=== PATIENT | female | born 1995 ===

== ENCOUNTER 2017-11-09 09:50 | Emergency (ER) | payer MEDICAID ==
[2017-07-15 18:00] VITALS: BMI 26.6
[2017-11-09] MEDS ORDERED: Lactated Ringer's 1,000 ML IV ONE (10:01)
[2017-11-09 10:15] LABS: BASO # 0.1 K/uL (0.0-0.2); BASO % 0.6 % (0.0-2.0); EOS # 0.1 K/uL (0.0-0.7); EOS % 1.4 % (0.0-4.0); HEMOGLOBIN 10.9 g/dL (11.0-16.0); LYMPH # 1.9 K/uL (1.0-4.3); LYMPH % 17.5 % (20.0-40.0); MEAN CELL VOLUME 74.9 fL (81.0-99.0); MEAN CORPUSCULAR HEMOGLOBIN 24.8 pg (27.0-31.0); MEAN CORPUSCULAR HGB CONC 33.1 g/dL (33.0-37.0); MEAN PLATELET VOLUME 8.7 fL (7.2-11.7); MONO % 9.7 % (0.0-10.0); NEUT # 7.6 K/uL (1.8-7.0); NEUT % 70.8 % (50.0-75.0); RBC 4.38 Mil/uL (3.80-5.20); RED CELL DISTRIBUTION WIDTH 17.7 % (11.5-14.5); WHITE BLOOD COUNT 10.7 K/uL (4.8-10.8)
[2017-11-09 10:18] LABS: SQUAMOUS EPITHIAL 2 /hpf (0-5); URINE BILIRUBIN NEGATIVE (NEGATIVE); URINE BLOOD NEGATIVE (NEGATIVE); URINE CLARITY Clear (Clear); URINE COLOR Straw (YELLOW); URINE GLUCOSE (UA) NORMAL (Normal); URINE LEUKOCYTE ESTERASE NEG Leu/uL (Negative); URINE NITRATE NEGATIVE (NEGATIVE); URINE PROTEIN NEGATIVE (NEGATIVE); URINE UROBILINOGEN NORMAL mg/dL (0.2-1.0)
[2017-11-09 10:30] LABS: ALBUMIN 3.2 g/dL (3.5-5.0); ALT/SGPT 26 U/L (9-52); AST/SGOT 25 U/L (14-36); BLOOD UREA NITROGEN 8 mg/dL (7-17); CALCIUM 8.5 mg/dl (8.6-10.4); GFR AFRICAN-AMERICAN > 60; GFR NON-AFRICAN AMERICAN > 60
[2017-11-09 10:38] LABS: PROTHROMBIN TIME 11.4 SECONDS (9.7-12.2)
[2017-11-09 15:43] VITALS: BP 111/66; PULSE 89
== END 2017-11-09 11:41 | disposition home or self-care (01) ==
LOC: C.EROB 09:50
DX: R10.9 Unspecified abdominal pain (principal); O36.8120 Decreased fetal movements, second trimester, not applicable or unspecified; Z3A.27 27 weeks gestation of pregnancy
CPT/HCPCS: 80053; 81001; 85025; 85610; 85730; 99283; J7120

== ENCOUNTER 2017-12-13 14:46 | Observation (INO) | payer MEDICAID ==
[2017-12-13 14:46] VITALS: BMI 26.6
--- NOTE | 2017-12-13 15:25 | C.PDOC ---
History Of Present Illness 22 year old female, who is currently around 32 weeks (A2), presents to the ED after having a syncopal episode earlier today. Patient states she was standing in line at the post office when she began feeling dizzy and "hot" prior to the syncopal episode. She now presents to the ED for evaluation of lower back pain and suprapubic pressure. Patient reports having a similar episode when she was 4 weeks , but she did not seek medical evaluation at the time. Patient states she has been experiencing lower back pain throughout her , but her symptoms have worsened after the fall. Patient denies chest pain, shortness of breath, urinary/bowl incontinence, tongue bite, focal signs of weakness, or any seizure-like activity prior to syncopal episode. Patient is undergoing care by Dr. Mari Carballo at [place]. Time Seen by Provider: 12/13/17 15:05 Chief Complaint (Nursing): Syncope History Per: Patient History/Exam Limitations: no limitations Onset/Duration Of Symptoms: Hrs Current Symptoms Are (Timing): Better Number Of Syncopal Episodes: 1 Activity At Onset Of Symptoms: Standing Associated Symptoms Preceding Syncopal Episode: Other (dizziness and feeling "hot") Seizure Or Post-ictal Symptoms: denies: Generalized Seizure Activity, Incontinent Of Urine, Incontinent Of Stool, Bit Tongue Fall Associated With With Symptoms: Yes Additional History Per: Patient Past Medical History Reviewed: Historical Data, Nursing Documentation, Vital Signs Vital Signs: Last Vital Signs Temp 98.6 F 12/13/17 18:25 Pulse 75 12/13/17 18:25 Resp 20 12/13/17 18:25 BP 112/69 12/13/17 18:25 Pulse Ox 97 12/13/17 19:05 - Medical History PMH: No Chronic Diseases Surgical History: No Surg Hx Family History: States: Unknown Family Hx - Social History Hx Alcohol Use: No Hx Substance Use: No - Immunization History Hx Tetanus Toxoid Vaccination: No Hx Influenza Vaccination: No Review Of Systems Cardiovascular: Negative for: Chest Pain Respiratory: Negative for: Shortness of Breath Gastrointestinal: Positive for: Nausea, Abdominal Pain Genitourinary: Negative for: Incontinence Musculoskeletal: Positive for: Back Pain (lower ) Neurological: Positive for: Dizziness. Negative for: Weakness (focal ) Physical Exam - Physical Exam Appears: Non-toxic, No Acute Distress Skin: Normal Color, Warm, Dry, No Other (focal injuries from syncopal episode ) Head: Atraumatic, Normacephalic Eye(s): bilateral: Normal Inspection Oral Mucosa: Moist Neck: Supple Chest: Symmetrical, No Deformity, No Tenderness Cardiovascular: Rhythm Regular, No Murmur Respiratory: Normal Breath Sounds, No Rales, No Rhonchi, No Wheezing Gastrointestinal/Abdominal: Soft, Tenderness (mild, suprapubic ), No Guarding, No Rebound, Other (gravid uterus ) Back: No Vertebral Tenderness, Paraspinal Tenderness (lumbar ), No Straight Leg Raising Extremity: Normal ROM, No Tenderness, No Calf Tenderness, Capillary Refill ( less than 2 seconds ), No Deformity, No Swelling Neurological/Psych: Oriented x3, Normal Speech, Normal Cognition Gait: Steady ED Course And Treatment - Laboratory Results Result Diagrams: 12/13/17 16:48 12/13/17 16:48 ECG: Interpreted By Me, Viewed By Me ECG Rhythm: Sinus Rhythm Interpretation Of ECG: Normal Sinus Rhythm at 90bpm. Normal Intervals. Normal axis. Nonspecific T wave changes. Rate From EC O2 Sat by Pulse Oximetry: 97 (on RA ) Pulse Ox Interpretation: Normal Medical Decision Making Medical Decision Making: Assessment: syncope Progress: Patient initially presented to the ED. Due to patient being more than 20 weeks , will elect for patient to be evaluated in L&D first. Patient was evaluated by Dr. Sonia Garcia (KN[employer]ON[employer] teacher) and was medically cleared and sent to the ED for evaluation of syncope. In ED, patient is complaining of lower back pain, suprapubic pressure, and nausea. Bloodwork and UA ordered and reviewed. Pepcid IVP, Zofran IVP, and IV Fluids administered. Disposition - Disposition Disposition Time: 19:00 Condition: STABLE Forms: [employer] (Khmer) - Clinical Impression Clinical Impression: Dizziness, Vasovagal syncope - Scribe Statement The provider has reviewed the documentation as recorded by the Scribe (Loli Riley) Provider Attestation: All medical record entries made by the Scribe were at my direction and personally dictated by me. I have reviewed the chart and agree that the record accurately reflects my personal performance of the history, physical exam, medical decision making, and the department course for this patient. I have also personally directed, reviewed, and agree with the discharge instructions and disposition. Physician Patient Turnover Patient Signed Over To: Román Benitez Handoff Comments: pending labs, reevaluation and disposition
[2017-12-13 16:52] LABS: PROTHROMBIN TIME 11.4 SECONDS (9.7-12.2)
[2017-12-13 16:58] LABS: BASO # 0.1 K/uL (0.0-0.2); BASO % 0.7 % (0.0-2.0); EOS # 0.1 K/uL (0.0-0.7); EOS % 0.7 % (0.0-4.0); HEMOGLOBIN 11.4 g/dL (11.0-16.0); LYMPH # 1.6 K/uL (1.0-4.3); LYMPH % 12.5 % (20.0-40.0); MEAN CELL VOLUME 74.3 fL (81.0-99.0); MEAN CORPUSCULAR HEMOGLOBIN 24.4 pg (27.0-31.0); MEAN CORPUSCULAR HGB CONC 32.9 g/dL (33.0-37.0); MEAN PLATELET VOLUME 8.9 fL (7.2-11.7); MONO % 7.4 % (0.0-10.0); NEUT # 10.3 K/uL (1.8-7.0); NEUT % 78.7 % (50.0-75.0); NRBC % 0.1 % (0.0-2.0); RBC 4.66 Mil/uL (3.80-5.20); RED CELL DISTRIBUTION WIDTH 16.9 % (11.5-14.5); WHITE BLOOD COUNT 13.1 K/uL (4.8-10.8)
[2017-12-13 16:59] LABS: ALBUMIN 3.2 g/dL (3.5-5.0); ALT/SGPT 27 U/L (9-52); AST/SGOT 23 U/L (14-36); BLOOD UREA NITROGEN 7 mg/dL (7-17); CALCIUM 9.1 mg/dl (8.6-10.4); GFR AFRICAN-AMERICAN > 60; GFR NON-AFRICAN AMERICAN > 60
[2017-12-13] MEDS ORDERED: Sodium Chloride 0.9% 1,000 ML IV ONE (18:00)
[2017-12-13] MEDS ORDERED: Sodium Chloride 0.9% 1,000 ML ONE (19:19)
[2017-12-13 22:57] VITALS: RESP 20
--- NOTE | 2017-12-13 23:21 | CP.PCM.HP ---
History of Present Illness - History of Present Illness History of Present Illness: 22 year old female, who is currently around 32 weeks (A2), presents to the ED after having a syncopal episode earlier today. Patient states she was standing in line at the post office when she began feeling dizzy and "hot" prior to the syncopal episode. She now presents to the ED for evaluation of lower back pain and suprapubic pressure. Patient reports having a similar episode when she was 4 weeks , but she did not seek medical evaluation at the time. Patient states she has been experiencing lower back pain throughout her , but her symptoms have worsened after the fall. Patient denies chest pain, shortness of breath, urinary/bowl incontinence, tongue bite, focal signs of weakness, or any seizure-like activity prior to syncopal episode. Patient is undergoing care by Dr. Mari Carballo at [place]. Past Patient History - Past Social History Smoking Status: Never Smoked - PSYCHIATRIC Hx Substance Use: No - SURGICAL HISTORY Hx Surgeries: Yes Hx Section: Yes - ANESTHESIA Hx Anesthesia: No Hx Anesthesia Reactions: No Meds Allergies/Adverse Reactions: Allergies Allergy/AdvReac Type Severity Reaction Status Date / Time No Known Allergies Allergy Verified 12/13/17 14:52 Results - Vital Signs Recent Vital Signs: Last Vital Signs Temp 98.2 F 12/13/17 22:56 Pulse 83 12/13/17 22:56 Resp 20 12/13/17 22:56 BP 114/69 12/13/17 22:56 Pulse Ox 99 12/13/17 22:56 - Labs Result Diagrams: 12/13/17 16:48 12/13/17 16:48 Labs: Laboratory Results - last 24 hr 12/13/17 12/13/17 12/13/17 15:47 16:20 16:48 WBC 13.1 H RBC 4.66 Hgb 11.4 Hct 34.6 MCV 74.3 L MCH 24.4 L MCHC 32.9 L RDW 16.9 H Plt Count 95 L D MPV 8.9 Neut % (Auto) 78.7 H Lymph % (Auto) 12.5 L [place] % (Auto) 7.4 Eos % (Auto) 0.7 Baso % (Auto) 0.7 Neut # (Auto) 10.3 H Lymph # (Auto) 1.6 [place] # (Auto) 1.0 H Eos # (Auto) 0.1 Baso # (Auto) 0.1 Differential Comment PT INR APTT Fibrinogen Sodium Potassium Chloride Carbon Dioxide Anion Gap BUN Creatinine Est GFR ( Amer) Est GFR (Non-Af Amer) POC Glucose (mg/dL) 85 Random Glucose Calcium Total Bilirubin AST ALT Alkaline Phosphatase Troponin I Total Protein Albumin Globulin Albumin/Globulin Ratio Blood Type O POSITIVE Antibody Screen Negative 12/13/17 12/13/17 12/13/17 16:48 16:48 18:56 WBC RBC Hgb Hct MCV MCH MCHC RDW Plt Count MPV Neut % (Auto) Lymph % (Auto) [place] % (Auto) Eos % (Auto) Baso % (Auto) Neut # (Auto) Lymph # (Auto) [place] # (Auto) Eos # (Auto) Baso # (Auto) Differential Comment PT 11.4 INR 1.0 APTT 31 Fibrinogen 438 H Sodium 140 Potassium 3.9 Chloride 104 Carbon Dioxide 22 Anion Gap 18 BUN 7 Creatinine 0.5 L Est GFR ( Amer) > 60 Est GFR (Non-Af Amer) > 60 POC Glucose (mg/dL) Random Glucose 83 Calcium 9.1 Total Bilirubin 0.2 AST 23 ALT 27 Alkaline Phosphatase 74 Troponin I < 0.0120 Total Protein 6.5 Albumin 3.2 L Globulin 3.3 Albumin/Globulin Ratio 1.0 Blood Type Antibody Screen
[2017-12-14] MEDS: Dextrose 5%/0.45% NS 1,000 ML IV SCH ×3 (00:30→14:15)
[2017-12-14 04:28] LABS: CK-MB < 0.22 ng/mL (0.0-3.38)
[2017-12-14 07:39] LABS: CK-MB < 0.22 ng/mL (0.0-3.38)
[2017-12-14] MEDS ORDERED: Prenatal Multivit/Folic Acid/Iron Tab PO SCH (10:00)
[2017-12-14 15:48] VITALS: BP 102/66; PULSE 97; TEMP 98.4; O2SAT 98
--- NOTE | 2017-12-14 22:56 | CARD ---
APPROVED REPORT EXAM: Two-dimensional and M-mode echocardiogram with Doppler and color Doppler. Other Information Quality : Good[employer] : INDICATION Syncope 2D DIMENSIONS IVSd0.8 (0.7-1.1cm)LVDd4.2 (3.9-5.9cm) PWd0.8 (0.7-1.1cm)LVDs2.3 (2.5-4.0cm) FS (%) 44.3 %LVEF (%)65.0 (>50%) M-Mode DIMENSIONS Left Atrium (MM)2.86 (2.5-4.0cm)Aortic Root2.42 (2.2-3.7cm) Aortic Cusp Exc.2.12 (1.5-2.0cm) Mitral Valve MV E Xmphqlmf37.3cm/sMV A Qjhbvbtc03.4cm/sE/A ratio1.2 TDI E/Lateral E'0.0E/Medial E'0.0 Tricuspid Valve TR Peak Pcxetzml307gy/sTR Peak Gr.19mmHg LEFT VENTRICLE The left ventricle is normal size. There is normal left ventricular wall thickness. Left ventricle systolic function is normal. The Ejection Fraction is 60-65%. There is normal LV segmental wall motion. The left ventricular diastolic function is normal. RIGHT VENTRICLE The right ventricle is normal size. There is normal right ventricular wall thickness. The right ventricular systolic function is normal. ATRIA The left atrium size is normal. The right atrium size is normal. The interatrial septum is intact with no evidence for an atrial septal defect. AORTIC VALVE The aortic valve is normal in structure. No aortic regurgitation is present. There is no aortic valvular stenosis. MITRAL VALVE The mitral valve is normal in structure. There is no evidence of mitral valve prolapse. There is no mitral valve stenosis. Mitral regurgitation is mild. TRICUSPID VALVE The tricuspid valve is normal in structure. There is mild tricuspid regurgitation. Right ventricular systolic pressure is estimated at less than 30 mmHg. There is no pulmonary hypertension. PULMONIC VALVE The pulmonic valve is not well visualized. There is mild pulmonic valvular regurgitation. GREAT VESSELS The aortic root is normal in size. PERICARDIAL EFFUSION There is no significant pericardial effusion. <Conclusion> Left ventricle systolic function is normal. The Ejection Fraction is 60-65%. No aortic regurgitation is present. Mitral regurgitation is mild. There is mild tricuspid regurgitation. There is no pulmonary hypertension. There is mild pulmonic valvular regurgitation.
--- NOTE | 2017-12-14 23:04 | CP.PCM.DIS ---
Provider - Provider Date of Admission: 12/13/17 21:22 Attending physician: Khris Esteves MD Time Spent in preparation of Discharge (in minutes): 45 Hospital Course - Lab Results Lab Results: Most Recent Lab Values WBC 13.1 K/uL (4.8-10.8) H 12/13/17 16:48 RBC 4.66 Mil/uL (3.80-5.20) 12/13/17 16:48 Hgb 11.4 g/dL (11.0-16.0) 12/13/17 16:48 Hct 34.6 % (34.0-47.0) 12/13/17 16:48 MCV 74.3 fL (81.0-99.0) L 12/13/17 16:48 MCH 24.4 pg (27.0-31.0) L 12/13/17 16:48 MCHC 32.9 g/dL (33.0-37.0) L 12/13/17 16:48 RDW 16.9 % (11.5-14.5) H 12/13/17 16:48 Plt Count 95 K/uL (130-400) L D 12/13/17 16:48 MPV 8.9 fL (7.2-11.7) 12/13/17 16:48 Neut % (Auto) 78.7 % (50.0-75.0) H 12/13/17 16:48 Lymph % (Auto) 12.5 % (20.0-40.0) L 12/13/17 16:48 [place] % (Auto) 7.4 % (0.0-10.0) 12/13/17 16:48 Eos % (Auto) 0.7 % (0.0-4.0) 12/13/17 16:48 Baso % (Auto) 0.7 % (0.0-2.0) 12/13/17 16:48 Neut # (Auto) 10.3 K/uL (1.8-7.0) H 12/13/17 16:48 Lymph # (Auto) 1.6 K/uL (1.0-4.3) 12/13/17 16:48 [place] # (Auto) 1.0 K/uL (0.0-0.8) H 12/13/17 16:48 Eos # (Auto) 0.1 K/uL (0.0-0.7) 12/13/17 16:48 Baso # (Auto) 0.1 K/uL (0.0-0.2) 12/13/17 16:48 Differential Comment 12/13/17 16:48 PT 11.4 SECONDS (9.7-12.2) 12/13/17 16:48 INR 1.0 12/13/17 16:48 APTT 31 SECONDS (21-34) 12/13/17 16:48 Fibrinogen 438 mg/dL (200-400) H 12/13/17 16:48 Sodium 140 mmol/L (132-148) 12/13/17 16:48 Potassium 3.9 mmol/L (3.6-5.2) 12/13/17 16:48 Chloride 104 mmol/L (98-107) 12/13/17 16:48 Carbon Dioxide 22 mmol/L (22-30) 12/13/17 16:48 Anion Gap 18 (10-20) 12/13/17 16:48 BUN 7 mg/dL (7-17) 12/13/17 16:48 Creatinine 0.5 mg/dL (0.7-1.2) L 12/13/17 16:48 Est GFR ( Amer) > 60 12/13/17 16:48 Est GFR (Non-Af Amer) > 60 12/13/17 16:48 POC Glucose (mg/dL) 85 mg/dL (65-110) 12/13/17 15:47 Random Glucose 83 mg/dL (65-105) 12/13/17 16:48 Calcium 9.1 mg/dl (8.6-10.4) 12/13/17 16:48 Total Bilirubin 0.2 mg/dL (0.2-1.3) 12/13/17 16:48 AST 23 U/L (14-36) 12/13/17 16:48 ALT 27 U/L (9-52) 12/13/17 16:48 Alkaline Phosphatase 74 U/L (38-126) 12/13/17 16:48 Total Creatine Kinase < 20 U/L (30-135) L 12/14/17 06:03 CK-MB (Mass) < 0.22 ng/mL (0.0-3.38) 12/14/17 06:03 Troponin I < 0.0120 ng/mL (0.00-0.120) 12/14/17 06:03 Total Protein 6.5 g/dL (6.3-8.3) 12/13/17 16:48 Albumin 3.2 g/dL (3.5-5.0) L 12/13/17 16:48 Globulin 3.3 gm/dL (2.2-3.9) 12/13/17 16:48 Albumin/Globulin Ratio 1.0 (1.0-2.1) 12/13/17 16:48 TSH 3rd Generation 1.46 mIU/L (0.46-4.68) 12/14/17 06:03 Blood Type O POSITIVE 12/13/17 16:20 Antibody Screen Negative 12/13/17 16:20 Discharge Plan - Follow Up Plan Condition: STABLE Disposition: HOME/ ROUTINE Instructions: Syncope (Fainting) (DC) Additional Instructions: Follow up with Dr Esteves in the office in one week. Referrals: Khris Esteves MD [Staff Provider] - (unable to make appointment at this time. Dr Esteves's office close. Pt to call and make appointment.)
--- NOTE | 2017-12-16 10:36 | CARD ---
APPROVED REPORT EKG Measurement Heart [id number] [place] 128P25 [id number] <Conclusion> Normal sinus rhythm Nonspecific T wave abnormality Abnormal ECG
--- NOTE | 2017-12-16 10:37 | CARD ---
APPROVED REPORT EKG Measurement Heart [id number] [place] 130P29 [id number] <Conclusion> Normal sinus rhythm Nonspecific T wave abnormality Abnormal ECG
== END 2017-12-14 19:47 | disposition home or self-care (01) ==
LOC: C.ER 14:46 → C.6T 14:46 → C.9E 21:22 → C.6T 21:22
PROVIDERS: ADMIT Internal Medicine; ATTEND Internal Medicine
DX: O99.89 Other specified diseases and conditions complicating pregnancy, childbirth and the puerperium (principal); R55 Syncope and collapse; Z3A.32 32 weeks gestation of pregnancy
CPT/HCPCS: 36415; 80053; 82948; 84443; 84484; 85025; 85384; 85610; 85730; 86850; 86900; 87086; 93306; 96361; 96374; 96375; 99285; G0378; J2405; J7040; J7042

== ENCOUNTER 2018-01-03 16:49 | Emergency (ER) | payer MEDICAID ==
--- NOTE | 2018-01-03 17:30 | OBHP ---
Datetime: 01/03/2018 17:23 IP Adm Impression: , intrauterine IP Admit Plan: Observation/Evaluation; Discharge home Admit Comment, IP Provider: Pt is 22 @ 35 weeks by EDC: 02/06. presented today with complaint s of leaking of fluid? POBHx c/s x 1 2010 @ 39 weeks for decreased FM. PMHx: none PSHx: none Social: negative. GBS+ A/P; Pt evaluated for ROM 1) negative nitrazine, negative pooling. 2) Discharge Home Extremities - PN: Normal Abdomen - PN: Normal Back - PN: Normal Breast - PN: Normal HEENT - PN: Normal General - PN: Normal FHR - Baseline A Provider: 150 Membranes, Provider: Intact Contraction Comments Provider: none Comments, ACOG Physical Exam: Sterile speculum exam performed: No pooling noted. Nitrazine paper neg ative. pelvic exam performed and pt was closed long and -3 Gestation - Est Wks by US: 35.0 Pool Provider: Negative Nitrazine Provider: Negative EGA AdmitDate IP: 35.1 IP Chief Complaint: Suspected ruptured membranes NICHD Variability Prov Fetus A: Moderate 6-25bpm NICHD Accel Fetus A IP Provider: 15X15 FHR Category Provider Fetus A: Category I Effacement, Provider: 0 Station, Provider: -3 Genitourinary Exam: Normal Datetime: 12/13/2017 16:25 Lungs - PN: Normal Heart - PN: Normal Thyroid - PN: Normal Neurologic - PN: Normal Vital Signs Provider Details: Sterile speculum exam: No poooling of fluid Dilatation, Provider: closed Datetime: 11/09/2017 10:07 Vital Signs Provider: Reviewed; Within Normal Limits NICHD Decel Fetus A IP Provider: None
[2018-01-03 21:43] VITALS: BP 124/80; PULSE 97
== END 2018-01-03 17:24 | disposition home or self-care (01) ==
LOC: C.EROB 16:49
DX: O47.03 False labor before 37 completed weeks of gestation, third trimester (principal); Z3A.35 35 weeks gestation of pregnancy

== ENCOUNTER 2018-01-31 06:38 | Inpatient (IN) | payer MEDICAID ==
[2018-01-31] MEDS ORDERED: cefOXitin 2 GM in Sodium Chloride 0.9% 100 ML IVPB ONE (07:04)
[2018-01-31] MEDS ORDERED: Sodium Citrate/Citric Acid 15 ml Sol PO ONE (07:04)
[2018-01-31] MEDS ORDERED: Lactated Ringer's 1,000 ML IV SCH ×2 (07:15→09:45)
[2018-01-31 07:46] LABS: BASO % 0.5 % (0.0-2.0); EOS # 0.1 K/uL (0.0-0.7); EOS % 1.4 % (0.0-4.0); HEMOGLOBIN 10.8 g/dL (11.0-16.0); LYMPH # 1.9 K/uL (1.0-4.3); LYMPH % 23.7 % (20.0-40.0); MEAN CELL VOLUME 74.4 fL (81.0-99.0); MEAN CORPUSCULAR HEMOGLOBIN 24.7 pg (27.0-31.0); MEAN CORPUSCULAR HGB CONC 33.2 g/dL (33.0-37.0); MEAN PLATELET VOLUME 9.5 fL (7.2-11.7); MONO # 0.8 K/uL (0.0-0.8); MONO % 10.3 % (0.0-10.0); NEUT # 5.1 K/uL (1.8-7.0); NEUT % 64.1 % (50.0-75.0); NRBC % 0.1 % (0.0-2.0); RBC 4.38 Mil/uL (3.80-5.20)
[2018-01-31] MEDS ORDERED: cefOXitin IV 2 gm in Saline 2 GM/50 ML BAG IVPB ONE (07:49)
[2018-01-31] MEDS ORDERED: Sodium Citrate/Citric Acid 15 ml Sol ONE (07:49)
[2018-01-31] MEDS ORDERED: Oxytocin 20 units in LR 2,000 ML IV ONE (07:50)
[2018-01-31 07:51] LABS: SQUAMOUS EPITHIAL 1 /hpf (0-5); URINE BILIRUBIN NEGATIVE (NEGATIVE); URINE BLOOD NEGATIVE (NEGATIVE); URINE CLARITY Clear (Clear); URINE COLOR Yellow (YELLOW); URINE GLUCOSE (UA) NORMAL (Normal); URINE LEUKOCYTE ESTERASE NEG Leu/uL (Negative); URINE PROTEIN NEGATIVE (NEGATIVE); URINE UROBILINOGEN NORMAL mg/dL (0.2-1.0)
[2018-01-31 08:02] LABS: ALB/GLOB RATIO 1.1 (1.0-2.1); ALBUMIN 3.3 g/dL (3.5-5.0); ALT/SGPT 18 U/L (9-52); AST/SGOT 22 U/L (14-36); BLOOD UREA NITROGEN 6 mg/dL (7-17); CALCIUM 8.6 mg/dl (8.6-10.4); GFR AFRICAN-AMERICAN > 60; GFR NON-AFRICAN AMERICAN > 60
[2018-01-31] MEDS ORDERED: Morphine 1 mg/ml preservative-free Inj(Duramorph) ONE (08:27)
--- NOTE | 2018-01-31 08:28 | OBHP ---
Datetime: 01/31/2018 07:09 IP Adm Impression: Term, intrauterine IP Admit Plan: Admit to unit; Initiate Section protocol Admit Comment, IP Provider: Patient is a 22 year old at 39w0d MAZIN 02/07/18 by LMP (05/03/17) c /w US presented to L+D for scheduled C/S. Patient is doing well at this time. Endorses +FM, denies LO F, VB. Admits to feeling contractions every 20 mins. Denies headaches, dizziness, cp, palpitations, s ob, abdominal pain, urinary symptoms, changes in bowel habits. Antental Issues: GBS positive in urine Varicella non-immune: will need varivax OB Hx: 1. 2010 Primary LTCS 2/[address], Female infant, 7lbs 10oz, no complications 2. 2015 SAB at 9 weeks, D+C 3. 2017 SAB at 4 weeks NOTE TELLER Hx: LMP - 05/03/17 [facility] - 14 x regular x 7 days Denies history of fibroids, STIs, abnormal pap smears History of ovarian cysts Allergies: NKDA Medications: PNV Medical History: Denies Surgical History: C/S x 1 Social History: Denies alcohol, tobacco, drug use Family History: Mother - HTN, Father - healthy PE: See above A/P: 22 year old at 39w0d presents for repeat C/S -Admit to L+D -CEFM and TOCO -Admission Labs: CBC, CMP, UA, T+S -LR at 125cc/hr -Cefoxitin 2gm, bictra, pepcid preoperatively -Diet: NPO -Anesthesia notified -yardage caller to OR -Plan discussed with attending Harper Osborne DO PGY-1 Pelvic Type - PN: Adequate Extremities - PN: Normal Abdomen - PN: Normal Back - PN: Normal Breast - PN: Normal Lungs - PN: Normal Heart - PN: Normal Thyroid - PN: Normal Neurologic - PN: Normal HEENT - PN: Normal General - PN: Normal FHR - Baseline A Provider: 140 Membranes, Provider: Intact Comments, ACOG Physical Exam: VS: 133/81 75 Gen: AAOx3 CV: RRR Lungs: CTA B/L Abd: Soft, gravid Ext: No clubbing, cyanosis, edema Gestation - Est Wks by US: 39.0 IP Hx Assessment: The History has been Reviewed and is Current EGA AdmitDate IP: 39.1 Vital Signs Provider: Reviewed IP Chief Complaint: Scheduled Section NICHD Variability Prov Fetus A: Moderate 6-25bpm NICHD Accel Fetus A IP Provider: 15X15 FHR Category Provider Fetus A: NICHD Decel Fetus A IP Provider: None Dilatation, Provider: 4 Effacement, Provider: 90 Station, Provider: 0 Genitourinary Exam: Normal DTRs - PN: Normal Dr Signature: candice barba
[2018-01-31] MEDS ORDERED: ePHEDrine 50 mg/ml Inj ONE ×2 (08:34)
[2018-01-31] MEDS ORDERED: Oxytocin 10 Units/ml Inj ONE (09:13)
[2018-01-31] MEDS ORDERED: Oxycodone/Acetaminophen 5/325 mg Tab PO PRN (10:24)
[2018-01-31] MEDS ORDERED: DiphenhydrAMINE 50 mg/ml Inj IVP PRN (10:24)
--- NOTE | 2018-01-31 10:38 | OBDS ---
DELIVERY PERSONNEL Delivery Doctor: Eliana Garcia MD Scrub Nurse: Maday George AND kyle Rizo Construction Equipment Mechanic: Rigo Cano RN Anesthesiologist: Dewayne Lawson MD MATERNAL INFORMATION Delivery Anesthesia: Spinal Maternal Complications: None Provider Comments: The patient was taken to the OR for repeat section. Pfannenstiel incisio n was made in the lower abdomen with a scalpel until the pre-peritoneal fat was reached. The bovie wa s then used to dissect the preperitoneal fat until the fascia was reached. The fascia was then extend ed bilaterally with the assitance of bovie. 2 kochers were then placed on the anterior aspect of the fascia. The rectus muscles were dissected from the fascia with velazquez scissors. The same procedure was performed on the posterior fascia was well. 2 allis clamps were placed on the rectus muscles, elevate d and the rectus muscles were with the scalpel. The perintoneum was entered with the assit ance of surgeons fingers. The peritoneum was stretched bilaterally and the bladder blade was placed i n the periotneal cavity. The bladder flap was created with the assistance of metzembaum scissors. A l ow transverse incision was made with the scalpel until the amniotic sac was reached. The incision was stretched bilaterally with surgeons fingers. The allis clamp was used enter the amniotic sac. The fl uid was noted to clear. The head was identified, elevated onto the abdomen and the infant was d elivered with the assistance of fundal pressure. The cord was cut, clamped and the fetus was delivere d. The cord was cut, clamped and the handed to peds. the placenta then delivered manually. The lap sponge was used to clear th e debris of the placental fragments. The uterus was then exteriorize d. The incision was re-approximated with 2.0 vicryl in 2 layers. The non-hemostatic areas was re-info rced with 2.0 monocryl until the bleeding stopped. The posterior uterus was irrigated with warm salin e. the uterus was then re-inserted into the abdomen. The interceed and surgical was placed on top of the incision. The peritoneum was then reapproximated with 2.0 vicryl. The muscles were reapproximated with 2.0- vicryl. The fascia was reapproximated with 0 vicryl. The pre-peritoneal fat was re-approxi mated with plain gut. The skin was reapproximated with 4.0 monocryl. All instruments were removed. All sponge needle and instrument count was noted to be correct LABOR SUMMARY EDC: 02/06/2018 00:00 No. Babies in Womb: 1 Attempted: No Labor Anesthesia: None LABOR INFORMATION Reason for Induction: Not Applicable Oxytocin: N/A Group B Beta Strep: Positive Antibiotics # of Doses: 1 Antibiotics Time of Last Dose: 8:45 aM Steroids Given: None Reason Steroids Not Administered: Not Applicable MEMBRANES Membranes Rupture Method: Artificial Rupture of Membranes: 01/31/2018 09:07 Length of Rupture (hrs): 0.02 Amniotic Fluid Color: Clear Amniotic Fluid Amount: Moderate Amniotic Fluid Odor: Normal STAGES OF LABOR Stage 3 hrs: 0 Stage 3 min: 2 CSECTION DELIVERY Primary Indication: Repeat Elective CSection Urgency: Elective CSection Incidence: Repeat Labor: N/A Elective: Elective CSection Incision: Lower Uterine Transverse BABY A INFORMATION Delivery Date/Time: 01/31/2018 09:08 Method of Delivery: Born in Route : No : N/A Forceps: N/A Vacuum Extraction: N/A Shoulder Dystocia : No SHOULDER DYSTOCIA BABY A Infant Delivery Date/Time: 01/31/2018 09:08 PRESENTATION/POSITION BABY A Presentation: Cephalic Cephalic Presentation: Vertex Vertex Position: Right Occipital Anterior Breech Presentation: N/A PLACENTA INFORMATION BABY A Placenta Delivery Time : 01/31/2018 09:10 Placenta Method of Delivery: Manual Removal Placenta Status: Delivered SCORES BABY A Heart Rate 1 min: >100 bpm Resp Effort 1 min: Good Cry Reflex Irritability 1 min: Cough or Sneeze or Pulls Away Muscle Tone 1 min: Active Motion Color 1 min: Body [place], Extremities Blue Resuscitation Effort 1 min: N/A SCORE 1 MIN: 9 Heart Rate 5 min: >100 bpm Resp Effort 5 min: Good Cry Reflex Irritability 5 min: Cough or Sneeze or Pulls Away Muscle Tone 5 min: Active Motion Color 5 min: Body [place], Extremities Blue Resuscitation Effort 5 min: N/A SCORE 5 MIN: 9 INFANT INFORMATION BABY A Gestational Age at Delivery: 39.1 Gestational Status: Term Outcome : Liveborn Infant Condition : Stable Sex: Male IDENTIFICATION/MEDS BABY A ID Band Number: [id number] ID Band Location: Left Leg; Left Arm Sensor Applied: Yes Sensor Number: [id number] Sensor Location : Right Leg Erythromycin Given: Given Both Eyes WEIGHT/LENGTH BABY A Infant Birthweight (gms): 3225 Weight (lb): 7 Weight (oz): 2 Infant Length Inches: 19.25 Length cms: 48.9 CORD INFORMATION BABY A No. Cord Vessels: 3 Nuchal Cord : N/A Cord Blood Taken: Yes Infant Suction: None
[2018-01-31] MEDS ORDERED: HYDROmorphone 0.5 mg/0.5 ml ISec IVP PRN (11:57)
[2018-01-31] MEDS: Simethicone 80 mg Chewtab PO SCH ×3 (15:54→22:16)
[2018-01-31] MEDS: Oxycodone/Acetaminophen 5/325 mg Tab PO PRN (22:17)
[2018-02-01] MEDS: Oxycodone/Acetaminophen 5/325 mg Tab PO PRN ×5 (05:41→23:05)
[2018-02-01 08:30] LABS: BASO # 0.1 K/uL (0.0-0.2); BASO % 0.3 % (0.0-2.0); EOS # 0.1 K/uL (0.0-0.7); EOS % 0.4 % (0.0-4.0); HEMOGLOBIN 10.8 g/dL (11.0-16.0); LYMPH % 5.8 % (20.0-40.0); MEAN CELL VOLUME 74.3 fL (81.0-99.0); MEAN CORPUSCULAR HEMOGLOBIN 24.6 pg (27.0-31.0); MEAN CORPUSCULAR HGB CONC 33.2 g/dL (33.0-37.0); MONO % 5.8 % (0.0-10.0); NEUT # 15.2 K/uL (1.8-7.0); NEUT % 87.7 % (50.0-75.0); PLATELET COUNT 184 K/uL (130-400); RED CELL DISTRIBUTION WIDTH 17.7 % (11.5-14.5)
[2018-02-01 08:32] LABS: WHITE BLOOD COUNT 17.4 K/uL (4.8-10.8)
[2018-02-01] MEDS ORDERED: Bisacodyl 5mg EC Tab PO ONE ×2 (09:32→11:00)
[2018-02-01 09:59] LABS: LYMPHOCYTE 3 % (20-40); MONOCYTE 5 % (0-10); NEUTROPHIL 92 % (50-75); TOTAL CELLS COUNTED 100
[2018-02-01 10:00] LABS: ANISOCYTOSIS SLIGHT; HYPOCHROMIC SLIGHT; PLATELET ESTIMATE NORMAL (NORMAL); POLYCHROMIC SLIGHT
[2018-02-01] MEDS: Simethicone 80 mg Chewtab PO SCH ×4 (10:59→21:48)
--- NOTE | 2018-02-01 23:13 | OBPPN ---
Datetime: 02/01/2018 11:05 PP Breasts Prov: Normal PP Heart Prov: Normal PP Lungs Prov: Normal PP Abdomen/Uterus Prov: Normal PP Lochia Prov: Normal PP Extremities Prov: Normal PP C/S Incision Prov: Normal PP Progress Prov: Normal PP Impression Prov: Normal progression PP Plan Prov: Continue present management PP Progress Note Prov: Patient seen and examined at bedside. Patient reports pain at the incision si te. She admits to mild lochia, urinating without any difficulty Patient has yet to have a bowel move ment. Patient is with no complaints.She denies any chest pain, shortness of breath, fev ers, chills, calf tenderness upon ambulation, changes in vision, palpitations. Vitals: HR: 100BPM WNL otherwise as stated above in the vitals chart. Physical Exam: Head: Normocephalic, atraumatic Cardiovascular: RRR, no murmurs, rubs, or gallops appreciated Pulmonary: Clear to auscultation bilaterally, no rhonchi or wheezing appreciated Abdomen: Non-distended, Fundal height one fingerwidth below umbilicus, Incision site with subcutic ular closure clean without signs of erythema, discharge or swelling. steri strips in place. Extremities: Non pitting edema appreciated. Normal ROM Labs: 8.0>10.8/32.6<166 17.4>10.8/32.7<184 O+, Rubella Immune Assestement and Plan: 22 yr old female s/p repeat at 39 weeks. POD#1 -Ibuprofen 600mg PO Q6 PRN for pain -LR @125mls/hr -D/C [place] -Monitor bowel function -Continue Colace -Encouraged patient to ambulate through the halls. -Encouraged . -Encouraged hydration. -Patient has male desiring circumcision. Consent obtained and in the chart. Plan discussed with Attending Dr. Gustabo Mueller, DO, PGY-1 Attending Note; patient seen and evaluated with the resident during rounds. I agree with the above as documented. Consent for circumcision obtained. Patient is clinically stable Plan: 1) As above. Vital Signs Provider PP: Reviewed; Within Normal Limits
[2018-02-02] MEDS: Oxycodone/Acetaminophen 5/325 mg Tab PO PRN ×4 (06:56→22:08)
[2018-02-02] MEDS: Simethicone 80 mg Chewtab PO SCH ×4 (09:59→22:10)
[2018-02-02 12:14] LABS: BASO % 0.2 % (0.0-2.0); EOS # 0.1 K/uL (0.0-0.7); EOS % 0.8 % (0.0-4.0); HEMOGLOBIN 9.4 g/dL (11.0-16.0); LYMPH # 1.6 K/uL (1.0-4.3); LYMPH % 10.1 % (20.0-40.0); MEAN CELL VOLUME 73.8 fL (81.0-99.0); MEAN CORPUSCULAR HEMOGLOBIN 24.4 pg (27.0-31.0); MEAN PLATELET VOLUME 8.8 fL (7.2-11.7); MONO # 1.2 K/uL (0.0-0.8); NEUT # 12.6 K/uL (1.8-7.0); NEUT % 80.9 % (50.0-75.0); RBC 3.87 Mil/uL (3.80-5.20); WHITE BLOOD COUNT 15.5 K/uL (4.8-10.8)
[2018-02-03 01:09] VITALS: TEMP 97.7
[2018-02-03] MEDS: Oxycodone/Acetaminophen 5/325 mg Tab PO PRN (04:21)
[2018-02-03 08:07] VITALS: BP 122/83; PULSE 88; RESP 18; O2SAT 100
--- NOTE | 2018-02-03 09:39 | CP.PCM.DIS ---
Provider - Provider Date of Admission: 01/31/18 06:38 Attending physician: Mak Campbell MD Time Spent in preparation of Discharge (in minutes): 40 Hospital Course - Lab Results Lab Results: Most Recent Lab Values WBC 15.5 K/uL (4.8-10.8) H 02/02/18 12:08 RBC 3.87 Mil/uL (3.80-5.20) 02/02/18 12:08 Hgb 9.4 g/dL (11.0-16.0) L 02/02/18 12:08 Hct 28.6 % (34.0-47.0) L 02/02/18 12:08 MCV 73.8 fL (81.0-99.0) L 02/02/18 12:08 MCH 24.4 pg (27.0-31.0) L 02/02/18 12:08 MCHC 33.0 g/dL (33.0-37.0) 02/02/18 12:08 RDW 18.0 % (11.5-14.5) H 02/02/18 12:08 Plt Count 206 K/uL (130-400) 02/02/18 12:08 MPV 8.8 fL (7.2-11.7) 02/02/18 12:08 Neut % (Auto) 80.9 % (50.0-75.0) H 02/02/18 12:08 Lymph % (Auto) 10.1 % (20.0-40.0) L 02/02/18 12:08 [place] % (Auto) 8.0 % (0.0-10.0) 02/02/18 12:08 Eos % (Auto) 0.8 % (0.0-4.0) 02/02/18 12:08 Baso % (Auto) 0.2 % (0.0-2.0) 02/02/18 12:08 Neut # (Auto) 12.6 K/uL (1.8-7.0) H 02/02/18 12:08 Lymph # (Auto) 1.6 K/uL (1.0-4.3) 02/02/18 12:08 [place] # (Auto) 1.2 K/uL (0.0-0.8) H 02/02/18 12:08 Eos # (Auto) 0.1 K/uL (0.0-0.7) 02/02/18 12:08 Baso # (Auto) 0.0 K/uL (0.0-0.2) 02/02/18 12:08 Neutrophils % (Manual) 92 % (50-75) H 02/01/18 08:12 Lymphocytes % (Manual) 3 % (20-40) L 02/01/18 08:12 Monocytes % (Manual) 5 % (0-10) 02/01/18 08:12 Platelet Estimate Normal (NORMAL) 02/01/18 08:12 Polychromasia Slight 02/01/18 08:12 Hypochromasia (manual) Slight 02/01/18 08:12 Anisocytosis (manual) Slight 02/01/18 08:12 Sodium 136 mmol/L (132-148) 01/31/18 07:38 Potassium 4.0 mmol/L (3.6-5.2) 01/31/18 07:38 Chloride 108 mmol/L (98-107) H 01/31/18 07:38 Carbon Dioxide 21 mmol/L (22-30) L 01/31/18 07:38 Anion Gap 11 (10-20) 01/31/18 07:38 BUN 6 mg/dL (7-17) L 01/31/18 07:38 Creatinine 0.4 mg/dL (0.7-1.2) L 01/31/18 07:38 Est GFR ( Amer) > 60 01/31/18 07:38 Est GFR (Non-Af Amer) > 60 01/31/18 07:38 Random Glucose 94 mg/dL (65-105) 01/31/18 07:38 Calcium 8.6 mg/dl (8.6-10.4) 01/31/18 07:38 Total Bilirubin 0.3 mg/dL (0.2-1.3) 01/31/18 07:38 AST 22 U/L (14-36) 01/31/18 07:38 ALT 18 U/L (9-52) 01/31/18 07:38 Alkaline Phosphatase 96 U/L (38-126) 01/31/18 07:38 Total Protein 6.3 g/dL (6.3-8.3) 01/31/18 07:38 Albumin 3.3 g/dL (3.5-5.0) L 01/31/18 07:38 Globulin 3.0 gm/dL (2.2-3.9) 01/31/18 07:38 Albumin/Globulin Ratio 1.1 (1.0-2.1) 01/31/18 07:38 Urine Color Yellow (YELLOW) 01/31/18 07:38 Urine Clarity Clear (Clear) 01/31/18 07:38 Urine pH 6.0 (5.0-8.0) 01/31/18 07:38 Ur Specific [place] 1.014 (1.003-1.030) 01/31/18 07:38 Urine Protein Negative mg/dL (NEGATIVE) 01/31/18 07:38 Urine Glucose (UA) Normal mg/dL (Normal) 01/31/18 07:38 Urine Ketones Negative mg/dL (NEGATIVE) 01/31/18 07:38 Urine Blood Negative (NEGATIVE) 01/31/18 07:38 Urine Nitrate Negative (NEGATIVE) 01/31/18 07:38 Urine Bilirubin Negative (NEGATIVE) 01/31/18 07:38 Urine Urobilinogen Normal mg/dL (0.2-1.0) 01/31/18 07:38 Ur Leukocyte Esterase Neg Rachid/uL (Negative) 01/31/18 07:38 Urine WBC (Auto) < 1 /hpf (0-5) 01/31/18 07:38 Ur Squamous Epith Cells 1 /hpf (0-5) 01/31/18 07:38 RPR Nonreactive (NONREACTIVE) 01/31/18 07:38 Blood Type O POSITIVE 01/31/18 07:38 Antibody Screen Negative 01/31/18 07:38 - Hospital Course Hospital Course: 22 year old female , s/p repeat caesarian section with no past medical history comes into the hospital for a scheduled caesarian section. Patient underwent caesarian section. Patient was found to be GBS positive in the urine and varicella non-immune. Upon today's visit patient was ambulating, passing urine and bowels without complaint and pain level was controlled. Patient was seen and determined stable for discharge today. Discharge Instructions: 1.F/[place] with [facility] [place] [facility] [place] one week of discharge. 2.Motrin 600mg Q6 PRN for pain control. 3.Percocet 5/325mg Q4 PRN for pain control. 3.Encouraged hydration. 4.Advised patient to return to hospital for any new or worsening symptoms. Plan discussed with Attending, Dr. Montejo. Thong Mueller, Software Integration Developer PGY-1 Discharge Exam - Head Exam Head Exam: ATRAUMATIC, NORMAL INSPECTION, NORMOCEPHALIC - Eye Exam Eye Exam: EOMI, Normal appearance, PERRL Pupil Exam: NORMAL ACCOMODATION, PERRL - Respiratory Exam Respiratory Exam: Clear to PA & Lateral, NORMAL BREATHING PATTERN, UNREMARKABLE - Cardiovascular Exam Cardiovascular Exam: REGULAR RHYTHM - GI/Abdominal Exam GI & Abdominal Exam: Normal Bowel Sounds, Unremarkable - Neurological Exam Neurological exam: Alert, Normal Gait, Oriented x3 - Psychiatric Exam Psychiatric exam: Normal Affect, Normal Mood - Skin Skin Exam: Dry, Intact, Normal Color Discharge Plan - Discharge Medications Prescriptions: Ferrous Sulfate 325 mg PO BID #60 tablet Ibuprofen [Motrin Tab] 600 mg PO Q6 #20 tab Oxycodone HCl/Acetaminophen [Acetaminophen-Oxycodone 325 mg-5 mg] 2 tab PO Q4 # 16 tab - Follow Up Plan Condition: GOOD Disposition: HOME/ ROUTINE
[2018-02-03] MEDS: Simethicone 80 mg Chewtab PO SCH (10:04)
--- NOTE | 2018-02-03 12:26 | OBDCSUM ---
Datetime: 02/03/2018 12:22 Follow up at, Provider: [facility] Disch Instr Activity: May be up to bathroom; May be up for meals; May Shower Disch Instr Diet: Regular Discharge Instructions, Provider: Routine instructions given Discharge Diagnosis, Provider: Term Delivered Discharge Time: 02/03/2018 13:00 Follow up in weeks, Provider: 02/07/2018 Contraception discussed, Prov: No Disch Activity Restrictions: No sexual activity; Nothing in vagina - [place], tampons, douche Discharge Diagnosis Prov Other: Previous [place] sections Status post repeat section Anemia
--- NOTE | 2018-02-03 12:42 | OBPPN ---
Datetime: 02/03/2018 12:25 PP Pain Prov: Within normal limits PP Nausea Prov: Denies PP Flatus Prov: Yes PP BM Prov: Yes PP Breasts Prov: Normal PP Heart Prov: Normal PP Lungs Prov: Normal PP Abdomen/Uterus Prov: Normal PP Lochia Prov: Normal PP Vulva/Perineum Prov: Not Done PP CVA Tenderness Prov: Normal PP Extremities Prov: Normal PP C/S Incision Prov: Normal PP Progress Prov: Not Applicable PP Comments Phys Exam Prov: Abdomen: Soft, Non distended. Fundus mildly and apprppriately tender, 2 FB below umbilicus. Incision with subcuticular closure - clean, dry and intact; steri strips in place . Mild lociha rubra. Extremities: no calf tenderenss All other systems reviewed and are negative PP Impression Prov: Normal progression PP Plan Prov: Discharge PP Progress Note Prov: Patient received in bed in room 453; seen and evaluated at approximately 0750 hours. (+) Ambulating and voiding without difficulty. (+) BM. Denies nausea, vomiting, headches, l ightheadedness, shortness of breath or chest pain. (+) incisional pain, pain scale 6/10; relieved wit h pain meds. P.E.: as above. WD in NAD. Awake, alert and oriented to time, person and place. - POD#1 H/H 9.4/28. Rh(+) Assessment: POD#3, 22 y.o. P2022, S/P repeat LTCS. Afebrile, vital signs stable; Returning GI and functions. Anemia noted; asymptomatic and hemodynamically stable. Patient is clinically stable. Plan: 1) Discharge home 2) See full discharge instructions Vital Signs Provider PP: Reviewed; Within Normal Limits
== END 2018-02-03 14:10 | disposition home or self-care (01) | DRG 371 ==
LOC: C.4D 06:38 → C.4M 12:40
PROVIDERS: ADMIT Obstetrics & Gynecology; ATTEND Obstetrics & Gynecology
PROC: 10D00Z1 Extraction of Products of Conception, Low, Open Approach (ICD-10-PCS; principal; 2018-01-31)
DX: O34.211 Maternal care for low transverse scar from previous cesarean delivery (principal); O99.824 Streptococcus B carrier state complicating childbirth; Z3A.39 39 weeks gestation of pregnancy; Z82.49 Family history of ischemic heart disease and other diseases of the circulatory system; Z37.0 Single live birth

== ENCOUNTER 2018-06-05 01:23 | Emergency (ER) | payer MEDICAID ==
[2018-06-05 01:23] VITALS: BMI 26.6
[2018-06-05 01:37] VITALS: O2SAT 100
[2018-06-05] MEDS ORDERED: Sodium Chloride 0.9% 1,000 ML IV ONE (01:38)
[2018-06-05 02:07] LABS: HCG,QUALITATIVE URINE NEGATIVE (NEGATIVE)
[2018-06-05 02:09] LABS: BASO % 0.6 % (0.0-2.0); EOS # 0.1 K/uL (0.0-0.7); EOS % 2.3 % (0.0-4.0); HEMOGLOBIN 14.1 g/dL (11.0-16.0); LYMPH # 1.8 K/uL (1.0-4.3); LYMPH % 40.6 % (20.0-40.0); MEAN CORPUSCULAR HEMOGLOBIN 25.9 pg (27.0-31.0); MEAN CORPUSCULAR HGB CONC 33.2 g/dL (33.0-37.0); MEAN PLATELET VOLUME 8.7 fL (7.2-11.7); MONO # 0.5 K/uL (0.0-0.8); MONO % 11.3 % (0.0-10.0); NEUT % 45.2 % (50.0-75.0); RBC 5.45 Mil/uL (3.80-5.20); WHITE BLOOD COUNT 4.4 K/uL (4.8-10.8)
[2018-06-05 02:21] LABS: SQUAMOUS EPITHIAL 18 /hpf (0-5); URINE BACTERIA FEW (<OCC); URINE BILIRUBIN NEGATIVE (NEGATIVE); URINE BLOOD NEGATIVE (NEGATIVE); URINE CLARITY Hazy (Clear); URINE COLOR Amber (YELLOW); URINE GLUCOSE (UA) NORMAL (Normal); URINE LEUKOCYTE ESTERASE 2+ Leu/uL (Negative); URINE PROTEIN NEGATIVE (NEGATIVE); URINE UROBILINOGEN NORMAL mg/dL (0.2-1.0)
[2018-06-05 02:23] LABS: ALB/GLOB RATIO 1.5 (1.0-2.1); ALBUMIN 4.4 g/dL (3.5-5.0); ALT/SGPT 84 U/L (9-52); AST/SGOT 35 U/L (14-36); BLOOD UREA NITROGEN 11 mg/dL (7-17); CALCIUM 9.5 mg/dl (8.6-10.4); GFR NON-AFRICAN AMERICAN > 60
--- NOTE | 2018-06-05 04:04 | C.PDOC ---
History Of Present Illness 23 year old female, whose PMHx includes migraines, presents to the ED for evaluation of nausea, vomiting, and generalized headache which began today. Patient reports having around four episodes of vomiting, and notes she saw some blood in her vomitus. She describes her headache as generalized. Patient denies fever, chills, abdominal pain, diarrhea, or changes in her bowel habits. Time Seen by Provider: 06/05/18 01:37 Chief Complaint (Nursing): GI Problem History Per: Patient History/Exam Limitations: no limitations Onset/Duration Of Symptoms: Hrs Current Symptoms Are (Timing): Still Present Quality Of Discomfort: denies: "Pain" Associated Symptoms: Nausea, Vomiting. denies: Fever, Chills, Diarrhea, Constipation Additional History Per: Patient Abnormal Vaginal Bleeding: No Past Medical History Reviewed: Historical Data, Nursing Documentation, Vital Signs Vital Signs: Last Vital Signs Temp 98.3 F 06/05/18 04:06 Pulse 61 06/05/18 04:06 Resp 16 06/05/18 04:06 BP 122/80 06/05/18 04:06 Pulse Ox 100 06/05/18 04:08 - Medical History PMH: No Chronic Diseases Surgical History: No Surg Hx - [facility] Procedures EXTRACTION OF POC, LOW CERVICAL, OPEN APPROACH (01/31/18) Family History: States: Unknown Family Hx - Social History Hx Alcohol Use: No Hx Substance Use: No - Immunization History Hx Tetanus Toxoid Vaccination: No Hx Influenza Vaccination: No Review Of Systems Constitutional: Negative for: Fever, Chills Gastrointestinal: Positive for: Nausea, Vomiting. Negative for: Abdominal Pain , Diarrhea, Constipation Neurological: Positive for: Headache Physical Exam - Physical Exam Appears: Non-toxic, No Acute Distress Skin: Normal Color, Warm, Dry Head: Atraumatic, Normacephalic Eye(s): bilateral: Normal Inspection, PERRL, EOMI Nose: Normal Oral Mucosa: Moist Throat: Normal, No Erythema, No Exudate, No Drooling, No Mass Neck: Normal ROM, No Paracervical Tenderness, Supple Chest: Symmetrical, No Deformity, No Tenderness Cardiovascular: Rhythm Regular, No Murmur Respiratory: Normal Breath Sounds, No Rales, No Rhonchi, No Wheezing Gastrointestinal/Abdominal: Soft, No Tenderness, No Guarding, No Rebound Extremity: Normal ROM, Capillary Refill (less than 2 seconds ), No Deformity, No Swelling Neurological/Psych: Oriented x3, Normal Speech Gait: Steady ED Course And Treatment - Laboratory Results Result Diagrams: 06/05/18 02:04 06/05/18 02:04 O2 Sat by Pulse Oximetry: 100 (on RA) Pulse Ox Interpretation: Normal Medical Decision Making Medical Decision Making: Impression: 23 year old female with headache, nausea, vomiting Plan: * bloodwork * urinalysis * Protonix IVP * Reglan IV * Zofran IVP * IV fluids Progress: Bloodwork and urinalysis ordered and reviewed. Protonix IVP, Reglan IV, Zofran IVP and IV Fluids given. On reassessment, patient is resting comfortably, tolerating PO intake and reports an improvement in her symptoms. Patient is showing no signs of distress and is stable for discharge. Patient is advised to follow up with her PMD within 1-2 days for further evaluation and/or return to the ED if symptoms persist or worsen. Disposition Counseled Patient/Family Regarding: Diagnosis, Need For Followup, Rx Given - Disposition Referrals: [facility] [Outside] [facility] [employer] [facility] [Outside] Disposition: HOME/ ROUTINE Disposition Time: 04:00 Condition: GOOD Additional Instructions: Vaya a lu mdico o la clnica en 2-5 espino sin falta, para mas evaluacin. [place] los medicamentos tejas indicado. Volver a la alex de emergencia en cualquier momento si los sntomas persisten o empeoran. Prescriptions: Metoclopramide [Reglan] 1 tab PO TID PRN #25 tab PRN Reason: Nausea/Vomiting Instructions: Migraine Headache (DC) Forms: [facility] (Slovenian) Print Language: KAZAKH - POA Present On Arrival: None - Clinical Impression Clinical Impression: Migraine - PA / BPM ARCHITECT / Resident Statement MD/DO has reviewed & agrees with the documentation as recorded. - Scribe Statement The provider has reviewed the documentation as recorded by the Scribe (Loli Riley) All medical record entries made by the Scribe were at my direction and personally dictated by me. I have reviewed the chart and agree that the record accurately reflects my personal performance of the history, physical exam, medical decision making, and the department course for this patient. I have also personally directed, reviewed, and agree with the discharge instructions and disposition.
[2018-06-05 04:07] VITALS: BP 122/80; PULSE 61; RESP 16; TEMP 98.3
== END 2018-06-05 04:07 | disposition home or self-care (01) ==
LOC: C.ER 01:23
DX: G43.909 Migraine, unspecified, not intractable, without status migrainosus (principal)
CPT/HCPCS: 80053; 81001; 84703; 85025; 96361; 96365; 96375; 99284; C9113; J2405; J2765; J7030

== ENCOUNTER 2018-12-06 15:52 | Emergency (ER) | payer MEDICAID ==
[2018-12-06 15:52] VITALS: BMI 26.6
[2018-12-06 16:04] VITALS: RESP 18
[2018-12-06 17:03] LABS: HCG,QUALITATIVE URINE NEGATIVE (NEGATIVE)
[2018-12-06 17:10] LABS: SQUAMOUS EPITHIAL 7 /hpf (0-5); URINE BILIRUBIN NEGATIVE (NEGATIVE); URINE BLOOD NEGATIVE (NEGATIVE); URINE CLARITY Hazy (Clear); URINE COLOR Yellow (YELLOW); URINE GLUCOSE (UA) NORMAL (Normal); URINE LEUKOCYTE ESTERASE NEG Leu/uL (Negative); URINE PROTEIN NEGATIVE (NEGATIVE)
[2018-12-06] MEDS ORDERED: Sodium Chloride 0.9% 1,000 ML IV ONE (17:26)
[2018-12-06] MEDS ORDERED: Sodium Chloride 0.9% 1,000 ML ONE (17:49)
--- NOTE | 2018-12-06 17:57 | C.PDOC ---
History Of Present Illness 23 y/o female presents to the ER complaining of frontal headache, nausea, vomiting, and epigastric abdominal pain which has been present since yesterday. Patient states that her LMP was on 11/19/18. Patient denies having fever,chills, CP,SOB, dizziness, and syncope, recent abx use, recent travel, known sick contacts Time Seen by Provider: 12/06/18 16:15 Chief Complaint (Nursing): GI Problem History Per: Patient History/Exam Limitations: no limitations Onset/Duration Of Symptoms: Days Current Symptoms Are (Timing): Still Present Severity: Moderate Past Medical History Reviewed: Historical Data, Nursing Documentation, Vital Signs Vital Signs: Last Vital Signs Temp 98.3 F 12/06/18 16:02 Pulse 90 12/06/18 16:02 Resp 18 12/06/18 16:02 BP 124/78 12/06/18 16:02 Pulse Ox 99 12/06/18 16:02 - Medical History PMH: No Chronic Diseases Denies: Depression, Diabetes, HTN Other Surgeries: Hx of surgeries - [facility] Procedures EXTRACTION OF POC, LOW CERVICAL, OPEN APPROACH (01/31/18) Family History: States: No Known Family Hx - Social History Hx Alcohol Use: No Hx Substance Use: No - Immunization History Hx Tetanus Toxoid Vaccination: No Hx Influenza Vaccination: No Review Of Systems Except As Marked, All Systems Reviewed And Found Negative. Constitutional: Negative for: Fever, Chills Cardiovascular: Negative for: Chest Pain Respiratory: Negative for: Shortness of Breath Gastrointestinal: Positive for: Nausea, Vomiting, Abdominal Pain, Diarrhea Neurological: Positive for: Headache. Negative for: Dizziness Physical Exam - Physical Exam Appears: Other (uncomfortable) Skin: Normal Color, Warm, Dry Head: Atraumatic, Normacephalic Eye(s): bilateral: Normal Inspection Nose: Normal Oral Mucosa: Moist Neck: Supple Chest: Symmetrical Cardiovascular: Rhythm Regular Respiratory: Normal Breath Sounds, No Rales, No Rhonchi, No Wheezing Gastrointestinal/Abdominal: Soft, Tenderness (epigastric tenderness), No Guardin g, No Rebound Neurological/Psych: Oriented x3, Normal Speech ED Course And Treatment - Laboratory Results Result Diagrams: 12/06/18 17:55 12/06/18 17:55 Lab Results: Urine Color Yellow (YELLOW) 12/06/18 16:51 Urine Clarity Hazy (Clear) 12/06/18 16:51 Urine pH 6.0 (5.0-8.0) 12/06/18 16:51 Ur Specific [place] 1.029 (1.003-1.030) 12/06/18 16:51 Urine Protein Negative mg/dL (NEGATIVE) 12/06/18 16:51 Urine Glucose (UA) Normal mg/dL (Normal) 12/06/18 16:51 Urine Ketones Negative mg/dL (NEGATIVE) 12/06/18 16:51 Urine Blood Negative (NEGATIVE) 12/06/18 16:51 Urine Nitrate Negative (NEGATIVE) 12/06/18 16:51 Urine Bilirubin Negative (NEGATIVE) 12/06/18 16:51 Urine Urobilinogen 4.0 mg/dL (0.2-1.0) H 12/06/18 16:51 Ur Leukocyte Esterase Neg Rachid/uL (Negative) 12/06/18 16:51 Urine WBC (Auto) 1 /hpf (0-5) 12/06/18 16:51 Urine RBC (Auto) 2 /hpf (0-3) 12/06/18 16:51 Ur Squamous Epith Cells 7 /hpf (0-5) H 12/06/18 16:51 Urine HCG, Qual Negative (NEGATIVE) 12/06/18 16:51 Urine HCG, Qual Negative (NEGATIVE) 12/06/18 16:51 O2 Sat by Pulse Oximetry: 99 (RA) Pulse Ox Interpretation: Normal Medical Decision Making Medical Decision Making: Plan: --Labs --UA --HCG, Qual. --IV Fluids --Zofran IV --Pepcid IV Disposition Counseled Patient/Family Regarding: Studies Performed, Diagnosis, Need For Followup - Disposition Referrals: Carmen Calles MD [Medical Doctor] - Disposition: HOME/ ROUTINE Disposition Time: 18:36 Condition: IMPROVED Instructions: Clear Liquid Diet, Acute Abdomen (Belly Pain), Adult (DC), Nausea and Vomiting, Adult (DC) Forms: General Discharge Instructions, [facility] (Luxembourgish), Gen Discharge Inst English, [facility] (English) Print Language: ANDORRAN - POA Present On Arrival: None - Clinical Impression Clinical Impression: Abdominal pain, Vomiting and diarrhea - Scribe Statement The provider has reviewed the documentation as recorded by the Kendell Arnold Provider Attestation: All medical record entries made by the Scribe were at my direction and personally dictated by me. I have reviewed the chart and agree that the record accurately reflects my personal performance of the history, physical exam, medical decision making, and the department course for this patient. I have also personally directed, reviewed, and agree with the discharge instructions and disposition.
[2018-12-06 18:09] LABS: BASO % 0.2 % (0.0-2.0); EOS # 0.1 K/uL (0.0-0.7); EOS % 1.7 % (0.0-4.0); LYMPH % 17.2 % (20.0-40.0); MEAN CORPUSCULAR HEMOGLOBIN 26.5 pg (27.0-31.0); MEAN CORPUSCULAR HGB CONC 32.7 g/dL (33.0-37.0); MEAN PLATELET VOLUME 8.8 fL (7.2-11.7); MONO # 0.5 K/uL (0.0-0.8); MONO % 8.9 % (0.0-10.0); NEUT # 4.2 K/uL (1.8-7.0); NRBC % 0.1 % (0.0-2.0); RBC 5.27 Mil/uL (3.80-5.20); RED CELL DISTRIBUTION WIDTH 13.3 % (11.5-14.5); WHITE BLOOD COUNT 5.9 K/uL (4.8-10.8)
[2018-12-06 18:21] LABS: ALB/GLOB RATIO 1.4 (1.0-2.1); ALBUMIN 4.1 g/dL (3.5-5.0); ALT/SGPT 40 U/L (9-52); AST/SGOT 27 U/L (14-36); BLOOD UREA NITROGEN 9 mg/dL (7-17); CALCIUM 9.1 mg/dl (8.6-10.4); GFR NON-AFRICAN AMERICAN > 60; LIPASE 32 U/L (23-300)
[2018-12-06 19:03] VITALS: BP 117/77; PULSE 77; TEMP 98.8; O2SAT 100
== END 2018-12-06 19:09 | disposition home or self-care (01) ==
LOC: C.ER 15:52
DX: R10.13 Epigastric pain (principal); R11.10 Vomiting, unspecified; R19.7 Diarrhea, unspecified
CPT/HCPCS: 80053; 81001; 83690; 84703; 85025; 87086; 96374; 96375; 99285; J2405; J7030